=== PATIENT | male | born 1965 | race Two or more races ===

== ENCOUNTER → 2025-01-01 | Emergency (ER) | payer OTHER ==
[~2025-01-01] VITALS: Ht 175.3 cm; Wt 77.1 kg
[~2025-01-01] MED LIST: DEXAMETHASONE SODIUM PHOSPHATE 4 MG/ML VIAL IM STA; DEXAMETHASONE SODIUM PHOSPHATE 4 MG/ML VIAL ONE; ORPHENADRINE CITRATE 30 MG/ML AMPUL IM STA; ORPHENADRINE CITRATE 30 MG/ML AMPUL ONE; POVIDONE-IODINE 118 ML BOTT TOP ONE
[2025-01-01 05:39] LABS: BASO % 0.3 % (0.1-1.2); EOS # 0.09 (0.04-0.54); EOS % 0.9 % (0.7-7.0); LYMPH # 1.69 (1.18-3.74); LYMPH % 16.8 % (19.3-53.1); MEAN PLATELET VOLUME 11.30 fl (9.4-12.4); MONO # 0.61 (0.24-0.82); MONO % 6.1 % (4.7-12.5); NEUT # 7.62 (1.56-6.13); NEUT % 75.7 % (34.0-71.1); RED CELL DISTRIBUTION WIDTH 12.7 % (11.6-14.4)
[2025-01-01 06:01] LABS: BUN CREA RATIO 21.0 (7.0-25.0); CREATININE SERUM 1.03 mg/dL (0.70-1.30); GFR 73.66; GLUCOSE FASTING 125.0 mg/dL (65-100); OSMOLALITY SERUM 286.0 MOSM/KG (275-295)
[2025-01-01 08:04] LABS: URINE APPEARANCE Clear; URINE BILIRRUBIN Negative (NEGATIVE); URINE BLOOD Large; URINE COLOR Yellow; URINE GLUCOSE Negative (NEGATIVE); URINE KETONE Negative (NEGATIVE); URINE LEUKOCYTE Negative; URINE NITRATE Negative; URINE PROTEIN Negative (NEGATIVE); URINE UROBILINOGEN 0.2 E.U./dl
[2025-01-01 08:05] LABS: URINE RBC 18.0 uL (0.0-20.8); URINE WBC 4.1 uL (0.0-23.2)
[2025-01-01 08:41] LABS: URINE BACTERIA 2.4 uL (0.0-1933); URINE CAST 0.00 uL (0.0-1.40); URINE EPITHELIAL CELLS 1.0 uL (0.0-38.8)
== END | disposition home or self-care (01) ==
LOC: ER 04:07
PROVIDERS: General Practice
DX: R31.0 Gross hematuria (principal); N40.0 Benign prostatic hyperplasia without lower urinary tract symptoms; K59.00 Constipation, unspecified; K57.90 Diverticulosis of intestine, part unspecified, without perforation or abscess without bleeding